=== PATIENT | female | born 1935 | race Caucasian/White ===

== ENCOUNTER 2022-11-07 15:52 | Inpatient (IN) | payer OTHER ==
[2022-11-07 16:09] VITALS: BMI 17.2
[2022-11-07 18:01] LABS: BASO % 0.5 % (0-2.0); EOS % 2.1 % (0-4.5); HEMATOCRIT 32.6 % (32.4-45.2); HEMOGLOBIN 10.9 GM/dL (10.7-15.3); LYMPH % 16.1 % (8-40); MCH 29.5 pg (25.7-33.7); MCHC 33.4 g/dl (32.0-36.0); MEAN CELL VOLUME 88.3 fl (80-96); MEAN PLT VOLUME 7.6 fl (7.5-11.1); MONO % 5.7 % (3.8-10.2); NEUT % 75.6 % (42.8-82.8); PLATELET COUNT 519 10^3/uL (134-434); RDW 14.8 % (11.6-15.6); WHITE BLOOD COUNT 9.5 K/mm3 (4.0-10.0)
[2022-11-07 18:09] LABS: PROTHROMBIN TIME (PATIENT) 11.6 SEC (9.7-13.0)
[2022-11-07 18:12] LABS: ACTIVATED PTT 30.7 SECONDS (25.2-36.5)
[2022-11-07 18:22] LABS: POTASSIUM 4.9 mmol/L (3.5-5.1)
[2022-11-07 18:24] LABS: ALBUMIN 3.1 g/dl (3.4-5.0); CALCIUM 10.4 mg/dL (8.5-10.1)
[2022-11-07 18:27] LABS: CREATININE 0.6 mg/dL (0.55-1.3)
[2022-11-07 18:28] LABS: BILIRUBIN,TOTAL 0.5 mg/dL (0.2-1); TOT PROT 6.7 g/dl (6.4-8.2)
[2022-11-07] MEDS ORDERED: oxyCODONE HCL 5 MG TABLET PO PRN (18:33)
[2022-11-07] MEDS: D5-1/2NS+20 MEQ KCL - 20 MEQ/1,000 ML INFUS.BAG IV SCH (18:54)
[2022-11-07 19:07] LABS: ANISOCYTOSIS 1+; MACROCYTOSIS 0; TARGET CELLS 1+; TEAR DROP CELLS 1+
[2022-11-07] MEDS: HEPARIN NA (PORCINE) 5,000 UNITS/ML 1ML VIAL SQ SCH (22:07)
[2022-11-07] MEDS ORDERED: HEPARIN NA (PORCINE) 5,000 UNITS/ML 1ML VIAL ONE (22:07)
[2022-11-07] MEDS ORDERED: levETIRAcetam 500 MG/5 ML INJECTION VIAL IVPB ONE (23:41)
[2022-11-08] MEDS ORDERED: levETIRAcetam 500 MG/5 ML INJECTION VIAL IVPB ONE (00:20)
[2022-11-08] MEDS ORDERED: DEXAMETHASONE SOD PHOSPHATE 4 MG/1 ML VIAL ONE (00:20)
[2022-11-08] MEDS: DEXAMETHASONE SOD PHOSPHATE 4 MG/1 ML VIAL IVPUSH SCH ×5 (00:33→22:15)
[2022-11-08 07:50] LABS: BASO % 0.5 % (0-2.0); EOS % 0.5 % (0-4.5); HEMOGLOBIN 10.6 GM/dL (10.7-15.3); MCH 29.1 pg (25.7-33.7); MEAN PLT VOLUME 7.9 fl (7.5-11.1); MONO % 1.3 % (3.8-10.2); NEUT % 88.7 % (42.8-82.8); PLATELET COUNT 508 10^3/uL (134-434); RBC 3.64 M/mm3 (3.60-5.2); RDW 14.7 % (11.6-15.6); WHITE BLOOD COUNT 8.3 K/mm3 (4.0-10.0)
[2022-11-08 08:09] LABS: POTASSIUM 4.9 mmol/L (3.5-5.1)
[2022-11-08 08:25] LABS: BLOOD UREA NITROGEN 13.8 mg/dL (7-18)
[2022-11-08 08:26] LABS: CALCIUM 10.5 mg/dL (8.5-10.1)
[2022-11-08 08:28] LABS: CREATININE 0.6 mg/dL (0.55-1.3)
[2022-11-08 08:29] LABS: BILIRUBIN,TOTAL 0.4 mg/dL (0.2-1); TOT PROT 6.7 g/dl (6.4-8.2)
[2022-11-08] MEDS: NICOTINE 14 MG/24 HOURS TOPICAL PATCH TD SCH (10:31)
[2022-11-08] MEDS: HEPARIN NA (PORCINE) 5,000 UNITS/ML 1ML VIAL SQ SCH ×2 (10:31→22:26)
[2022-11-08] MEDS: DOCUSATE SODIUM 100 MG CAPSULE (FP) PO SCH (11:32)
[2022-11-08] MEDS: D5-1/2NS+20 MEQ KCL - 20 MEQ/1,000 ML INFUS.BAG IV SCH (16:26)
[2022-11-08] MEDS: ACETAMINOPHEN 500 MG TABLET (FP) PO PRN (17:20)
[2022-11-08] MEDS: SENNOSIDES 8.6MG TABLET (FP) PO PRN (22:13)
[2022-11-08] MEDS: MELATONIN 5 MG TABLETS PO PRN (22:14)
[2022-11-09] MEDS: DEXAMETHASONE SOD PHOSPHATE 4 MG/1 ML VIAL IVPUSH SCH ×4 (03:50→21:42)
[2022-11-09 07:27] LABS: BASO % 0.2 % (0-2.0); HEMATOCRIT 34.6 % (32.4-45.2); HEMOGLOBIN 11.7 GM/dL (10.7-15.3); LYMPH % 9.9 % (8-40); MCHC 33.7 g/dl (32.0-36.0); MEAN CELL VOLUME 85.9 fl (80-96); MEAN PLT VOLUME 7.4 fl (7.5-11.1); MONO % 3.6 % (3.8-10.2); NEUT % 86.3 % (42.8-82.8); PLATELET COUNT 557 10^3/uL (134-434); RBC 4.03 M/mm3 (3.60-5.2); RDW 14.8 % (11.6-15.6); WHITE BLOOD COUNT 9.8 K/mm3 (4.0-10.0)
[2022-11-09 07:44] LABS: POTASSIUM 4.9 mmol/L (3.5-5.1)
[2022-11-09 07:50] LABS: CALCIUM 11.1 mg/dL (8.5-10.1)
[2022-11-09 07:51] LABS: ALBUMIN 3.5 g/dl (3.4-5.0); BLOOD UREA NITROGEN 15.5 mg/dL (7-18)
[2022-11-09 07:53] LABS: BILIRUBIN,DIRECT 0.1 mg/dL (0.0-0.2); CREATININE 0.7 mg/dL (0.55-1.3)
[2022-11-09 07:55] LABS: BILIRUBIN,TOTAL 0.4 mg/dL (0.2-1); TOT PROT 7.4 g/dl (6.4-8.2)
[2022-11-09] MEDS: ACETAMINOPHEN 500 MG TABLET (FP) PO PRN ×3 (08:37→21:41)
[2022-11-09] MEDS: HEPARIN NA (PORCINE) 5,000 UNITS/ML 1ML VIAL SQ SCH ×2 (10:26→21:43)
[2022-11-09] MEDS: DOCUSATE SODIUM 100 MG CAPSULE (FP) PO SCH (10:26)
[2022-11-09] MEDS: NICOTINE 14 MG/24 HOURS TOPICAL PATCH TD SCH (10:26)
[2022-11-09] MEDS: D5-1/2NS+20 MEQ KCL - 20 MEQ/1,000 ML INFUS.BAG IV SCH (18:10)
[2022-11-09] MEDS: SENNOSIDES 8.6MG TABLET (FP) PO PRN (21:43)
[2022-11-09] MEDS: MELATONIN 5 MG TABLETS PO PRN (21:43)
[2022-11-10] MEDS: DEXAMETHASONE SOD PHOSPHATE 4 MG/1 ML VIAL IVPUSH SCH ×4 (03:12→22:34)
[2022-11-10] MEDS: HEPARIN NA (PORCINE) 5,000 UNITS/ML 1ML VIAL SQ SCH ×2 (09:24→22:31)
[2022-11-10] MEDS: NICOTINE 14 MG/24 HOURS TOPICAL PATCH TD SCH (09:24)
[2022-11-10] MEDS: ACETAMINOPHEN 500 MG TABLET (FP) PO PRN ×2 (09:25→18:51)
[2022-11-10] MEDS: DOCUSATE SODIUM 100 MG CAPSULE (FP) PO SCH (09:25)
[2022-11-10] MEDS: D5-1/2NS+20 MEQ KCL - 20 MEQ/1,000 ML INFUS.BAG IV SCH (19:34)
[2022-11-10] MEDS: SENNOSIDES 8.6MG TABLET (FP) PO PRN (22:31)
[2022-11-10] MEDS: MELATONIN 5 MG TABLETS PO PRN (22:31)
[2022-11-11] MEDS: DEXAMETHASONE SOD PHOSPHATE 4 MG/1 ML VIAL IVPUSH SCH ×4 (03:25→20:25)
[2022-11-11] MEDS: DOCUSATE SODIUM 100 MG CAPSULE (FP) PO SCH ×4 (03:25→21:25)
[2022-11-11] MEDS ORDERED: MAGNESIUM HYDROX 2400MG/30ML ORAL SUSPENSION 30 ML CUP PO PRN (09:06)
[2022-11-11] MEDS: HEPARIN NA (PORCINE) 5,000 UNITS/ML 1ML VIAL SQ SCH (09:55)
[2022-11-11] MEDS: NICOTINE 14 MG/24 HOURS TOPICAL PATCH TD SCH (09:55)
[2022-11-11] MEDS: ACETAMINOPHEN 500 MG TABLET (FP) PO PRN ×2 (11:43→20:24)
[2022-11-11] MEDS: D5-1/2NS+20 MEQ KCL - 20 MEQ/1,000 ML INFUS.BAG IV SCH (20:06)
[2022-11-11] MEDS: MELATONIN 5 MG TABLETS PO PRN (20:27)
[2022-11-12] MEDS: DEXAMETHASONE SOD PHOSPHATE 4 MG/1 ML VIAL IVPUSH SCH ×4 (02:00→21:33)
[2022-11-12 07:09] LABS: HEMATOCRIT 31.6 % (32.4-45.2); HEMOGLOBIN 10.7 GM/dL (10.7-15.3); MCH 29.2 pg (25.7-33.7); MCHC 33.9 g/dl (32.0-36.0); MEAN CELL VOLUME 86.2 fl (80-96); MEAN PLT VOLUME 7.4 fl (7.5-11.1); PLATELET COUNT 464 10^3/uL (134-434); RBC 3.67 M/mm3 (3.60-5.2); RDW 14.8 % (11.6-15.6); WHITE BLOOD COUNT 10.7 K/mm3 (4.0-10.0)
[2022-11-12 07:45] LABS: POTASSIUM 4.7 mmol/L (3.5-5.1)
[2022-11-12 07:49] LABS: CALCIUM 9.7 mg/dL (8.5-10.1)
[2022-11-12 07:50] LABS: BLOOD UREA NITROGEN 25.7 mg/dL (7-18)
[2022-11-12 07:53] LABS: CREATININE 0.6 mg/dL (0.55-1.3)
[2022-11-12] MEDS: NICOTINE 14 MG/24 HOURS TOPICAL PATCH TD SCH (10:40)
[2022-11-12] MEDS: DOCUSATE SODIUM 100 MG CAPSULE (FP) PO SCH ×2 (10:40→21:29)
[2022-11-12] MEDS: ACETAMINOPHEN 500 MG TABLET (FP) PO PRN ×2 (11:43→21:34)
[2022-11-12] MEDS: SENNOSIDES 8.6MG TABLET (FP) PO PRN (11:44)
[2022-11-12] MEDS: D5-1/2NS+20 MEQ KCL - 20 MEQ/1,000 ML INFUS.BAG IV SCH (19:16)
[2022-11-12] MEDS: MAGNESIUM HYDROX 2400MG/30ML ORAL SUSPENSION 30 ML CUP PO SCH (21:29)
[2022-11-12] MEDS ORDERED: SENNOSIDES 8.6MG TABLET (FP) PO SCH (22:00)
[2022-11-13] MEDS: DEXAMETHASONE SOD PHOSPHATE 4 MG/1 ML VIAL IVPUSH SCH ×3 (02:24→14:08)
[2022-11-13] MEDS ORDERED: MAGNESIUM HYDROX 2400MG/30ML ORAL SUSPENSION 30 ML CUP PO SCH (10:00)
[2022-11-13] MEDS: DOCUSATE SODIUM 100 MG CAPSULE (FP) PO SCH (10:01)
[2022-11-13] MEDS: ACETAMINOPHEN 500 MG TABLET (FP) PO PRN (10:04)
[2022-11-13] MEDS: NICOTINE 14 MG/24 HOURS TOPICAL PATCH TD SCH (10:05)
[2022-11-13] MEDS: MAGNESIUM HYDROX 2400MG/30ML ORAL SUSPENSION 30 ML CUP PO SCH (10:05)
[2022-11-13] MEDS ORDERED: DEXAMETHASONE 4 MG TABLET (FP) PO SCH (15:00)
[2022-11-13 16:00] VITALS: BP 130/62; PULSE 85; RESP 20; TEMP 98.1
== END 2022-11-13 17:52 | disposition home or self-care (01) | DRG 54 ==
LOC: JER 15:52 → JERBED 17:18 → J4W 11-08 01:18
PROVIDERS: ADMIT Family Medicine; ATTEND Family Medicine
DX: C79.31 Secondary malignant neoplasm of brain (principal); E43 Unspecified severe protein-calorie malnutrition; G93.6 Cerebral edema; C34.91 Malignant neoplasm of unspecified part of right bronchus or lung; C34.92 Malignant neoplasm of unspecified part of left bronchus or lung; R64 Cachexia; Z68.1 Body mass index [BMI] 19.9 or less, adult; M48.55XA Collapsed vertebra, not elsewhere classified, thoracolumbar region, initial encounter for fracture; F17.210 Nicotine dependence, cigarettes, uncomplicated; J44.9 Chronic obstructive pulmonary disease, unspecified; E83.52 Hypercalcemia; R41.82 Altered mental status, unspecified; K59.00 Constipation, unspecified
CPT/HCPCS: 36415; 70450-TC; 70553-TC; 71250-TC; 74177-TC; 80048; 80053; 80076; 82306; 82310; 82330; 83735; 83970; 84100; 84484; 85025; 85027; 85610; 85730; 93005; 93010; 97116-GP; 97162-GP; 99285-25; A9579; J1644; Q9967